=== PATIENT | male | born 1985 | race Caucasian/White ===

== ENCOUNTER 2021-05-23 15:27 | Emergency (ER) | payer SELFPAY ==
[~2021-05-23] VITALS: Ht 193 cm; Wt 127.0 kg
[2021-05-23 16:10] VITALS: BP 148/98
[2021-05-23] MEDS ORDERED: IBUP-1955 PO (16:55)
[2021-05-23] MEDS ORDERED: IBUPROFEN 400 MG TABLET PO ONE (17:00)
[2021-05-23] MEDS ORDERED: HYDR-3976 GT (17:06)
[2021-05-23] MEDS ORDERED: IBUPROFEN 400 MG TABLET ONE (17:06)
== END 2021-05-23 17:13 | disposition home or self-care (01) ==
LOC: EDSEX 15:33 → ER 15:33
DX: M79.672 Pain in left foot (principal); M79.674 Pain in right toe(s); Z79.899 Other long term (current) drug therapy